=== PATIENT | female | born 1965 | race Caucasian/White ===

== ENCOUNTER 2017-02-24 05:53 | Day surgery (SDC) | payer BC ==
--- NOTE | ~2017-02-24 | EGD ---
EGD REPORT [facility] [address] [place] [place] [address] NAME: HILDA WOLFF : [birth year] STATUS : REG [facility] [place] PAT#: [id number] AGE: 51 ADM/REG DATE : 02/24/17 MR#: [id number] REPORT SERV DATE: 02/24/17 DICTATED BY: AUBREY WATERS DATE: 02/24/17 REPORT STATUS : Draft [facility] DATE: 02/24/17 [facility] Patient Name: Hilda Wolff Date of : 1965 Attending MD: AUBREY WATERS, Procedure Date No Time: 02/24/2017 Procedure: Colonoscopy Indications: Screening for colorectal malignant neoplasm Referring MD: DANYELLE CASTANEDA Medicines: Monitored Anesthesia Care Complications: No immediate complications. Estimated blood loss: None. Procedure: Pre-Anesthesia Assessment: - ASA Grade Assessment: II - A patient with mild systemic disease. After I obtained informed consent, the scope was passed under direct vision. Throughout the procedure, the patient's blood pressure, pulse, and oxygen saturations were monitored continuously. The CF [id number] was introduced through the anus and advanced to the cecum, identified by appendiceal orifice and ileocecal valve. The colonoscopy was performed without difficulty. The patient tolerated the procedure well. The quality of the bowel preparation was good. The ileocecal valve, appendiceal orifice and rectum were photographed. Findings: The perianal and digital rectal examinations were normal. A sessile polyp was found in the cecum. The polyp was 3 mm in size. The polyp was removed with a cold biopsy forceps. Resection and retrieval were complete. Verification of patient identification for the specimen was done. Estimated blood loss was minimal. Internal hemorrhoids were found during retroflexion and were Grade I (internal hemorrhoids that do not prolapse). The exam was otherwise without abnormality on direct and retroflexion views. Impression: - One 3 mm polyp in the cecum. Resected and retrieved. - Internal hemorrhoids. - The examination was otherwise normal on direct and retroflexion views. Recommendation: - Patient has a contact number available for emergencies. The signs and symptoms of potential delayed complications were discussed with the patient. Return to normal activities tomorrow. Written discharge EGD REPORT [address] [place]. [address] NAME: HILDA WOLFF : [birth year] STATUS : REG [facility] [place] PAT#: [id number] AGE: 51 ADM/REG DATE : 02/24/17 MR#: [id number] REPORT SERV DATE: 02/24/17 DICTATED BY: AUBREY WATERS DATE: 02/24/17 REPORT STATUS : Draft TRANSCRIBED BY: [facility] DATE: 02/24/17 instructions were provided to the patient. - Return to previous diet. - Continue present medications. - Await pathology results. - Repeat colonoscopy for surveillance based on pathology results. Procedure Code(s): --- Professional --- 37411, Colonoscopy, flexible, proximal to splenic flexure; with biopsy, single or multiple Diagnosis Code(s): --- Professional --- D12.0, Benign neoplasm of cecum K64.0, First degree hemorrhoids Z12.11, Encounter for screening for malignant neoplasm of colon CPT copyright 2013 [employer]. All rights reserved. The codes documented in this report are preliminary and upon nail feeder review may be revised to meet current compliance requirements. AUBREY WATERS, 02/24/2017 7:27 AM Number of Addenda: 0 Note Initiated On: 02/24/2017 7:04 AM Scope Withdrawal Time 0 hours 7 minutes 48 seconds [id number] [address]
[~2017-02-24 05:53] MED LIST: PRIN5 PO; XALAT OPH
== END 2017-02-24 23:59 | disposition home or self-care (01) ==
LOC: DMU 05:53
PROVIDERS: Internal Medicine Gastroenterology
PROC: 0DBH8ZX Excision of Cecum, Via Natural or Artificial Opening Endoscopic, Diagnostic (ICD-10-PCS; principal; 2017-02-24 07:30)
DX: Z12.11 Encounter for screening for malignant neoplasm of colon (principal); K63.5 Polyp of colon; K64.0 First degree hemorrhoids; G43.909 Migraine, unspecified, not intractable, without status migrainosus; I10 Essential (primary) hypertension; M19.90 Unspecified osteoarthritis, unspecified site; Z98.890 Other specified postprocedural states; Z88.2 Allergy status to sulfonamides; Z88.1 Allergy status to other antibiotic agents; Z88.8 Allergy status to other drugs, medicaments and biological substances; Z79.899 Other long term (current) drug therapy
CPT/HCPCS: 88305